=== PATIENT | female | born 1965 | race Caucasian/White ===

== ENCOUNTER 2024-07-11 01:26 | Emergency (ER) | payer BC, SELFPAY ==
[2024-07-11] VITALS (8 sets, daily range): BP systolic 117–150; BP diastolic 73–92
--- NOTE | 2024-07-11 02:25 | ED.GENMED ---
History of Present Illness
General
Chief Complaint: Breathing Problem
Source: patient
Exam Limitations: none
Time Seen by Provider: 07/11/24 02:19
Nursing documentation reviewed up to this point in time: agreed with
History of Present Illness
History of Present Illness:
59-year-old female brought in by EMS for evaluation of shortness of breath. Patient states that 'she has had parasites in her body since 2016 '. Patient states that she has been treated by her family doctor several times with antiparasitic's.
Patient states that she was recently told by her primary care provider that there is 'nothing more that he could do for her'. Patient has not sought the advice of a infectious disease doctor or other specialist. Patient is a smoker. She does not
have Sjogren's syndrome as well as possibility of lupus. Denies recent fever or chills. She did have some shortness of breath. Patient states that she is retired and lives with a roommate.
Past History
Past History
ED Past Medical History: Other (Endometriosis, interstitial cystitis.) and Other (Lupus, Sjogrens)
ED Past Surgical History: Gynecological (Laparoscopy) and Tonsilectomy
Social History
Tobacco: Former smoker
Alcohol: None
Drug: None
Personal:
Living: with family
Employment: Not employed
Review of Systems
Review of Systems
Allergies reviewed?: Yes
All Other Systems: ROS reviewed and negative except as documented in HPI and ROS
Constitutional: Reports no symptoms
EENT: Reports no symptoms
Respiratory: Reports cough and trouble breathing; Denies hemoptysis
Cardiac: Reports no symptoms
ABD/GI: Reports no symptoms
: Reports no symptoms
Musculoskeletal: Reports no symptoms
Skin: Reports no symptoms
Neurological: Reports no symptoms
Endocrine: Reports no symptoms
Hematologic/Lymphatic: Reports no symptoms
Psychiatric: Reports no symptoms
Phy Exam
General Physical Exam
General Presentation: well appearing and no apparent distress
General Skin: warm and dry
General Habitus: normal
General Mental: alert
General Hydration: appears well hydrated
ENT Exam
ENT Exam: EOMI, pharynx normal, neck supple and normocephalic
Eye Exam
Eye Exam: PERRL, cornea clear and conjunctiva normal
Cardiovascular Exam
Cardiovascular Exam: regular rate/rhythm, no edema, no murmur and normal peripheral pulses
Pulmonary Exam
Pulmonary Exam: lungs clear, no respiratory distress, no rales, no crackles, no rhonchi, no stridor, no wheezing and no cough
Gastrointestinal Exam
Gastrointestinal Exam: normal bowel sounds, non tender, soft, no organomegaly, no pulsatile mass and non distended
Neurological Exam
Neurological Exam: alert, oriented x3, no motor deficits and speech normal
Musculoskeletal Exam
Musculoskeletal Exam: full ROM and no edema
Skin Exam
Skin Exam: normal color, warm/dry, no rash and no petechia
Psychiatric Exam
Psychiatric Exam: normal mood/affect
Scores
Heart Failure Risk
Heart Failure Risk Score: Not Applicable
Course
Orders/Labs/Results
Orders:
Orders
07/11/24 02:37
CT Chest Pe Study Urgent
Comment:
Reason For Exam: dyspnea, hx of parasite
07/11/24 02:47
Complete Blood Count/With Diff Urgent
Comprehensive Metabolic Panel Urgent
Magnesium Urgent
NT-proBNP Urgent
PTT Urgent
Prothrombin Time Urgent
Troponin I Urgent
07/11/24 04:26
Dexamethasone Pf [Decadron] 10 mg PO NOW STA
Abnormal Lab Results
07/11/24
02:47
RBC 4.12 L 10^6/uL
(4.20-5.40)
Hct 35.7 L %
(37.0-47.0)
MCH 31.1 H pg
(27.0-31.0)
Absolute Monos (auto) 0.9 H 10^3/uL
(0.1-0.6)
Lymphocytes % 16.6 L %
(20.5-51.1)
Eosinophils % 7.0 H %
(0-6)
BUN 22 H mg/dl
(7-17)
Glucose 124 H mg/dl
(70-99)
AST 134 H U/L
(14-36)
ALT 59 H U/L
(0-35)
07/11/24 02:47
07/11/24 02:47
Vital Signs
Initial and Last Documented VS:
Initial Vital Signs
Pulse Resp BP Pulse Ox
99 18 150/89 98
07/11/24 01:30 07/11/24 01:30 07/11/24 01:30 07/11/24 01:30
Last Documented Vital Signs
Temp Pulse Resp BP Pulse Ox
97.6 F 82 14 117/73 96
07/11/24 01:31 07/11/24 06:03 07/11/24 06:03 07/11/24 06:02 07/11/24 05:00
*Critical Care Note
Total Time (30-74mins, 75-104mins- exclusive of procedures): Not Applicable
Update Note
Update Note:
Additional Information (per [facility]):
CTA chest with IV contrast
IMPRESSION:
No pulmonary embolus. Technically adequate study. No thoracic aneurysm or dissection.
Scattered bilateral tree-in-bud opacities and moderate bronchial wall thickening, which may be due to an infectious or inflammatory bronchiolitis.
Mediastinal and cardiac structures are unremarkable. Visualized portions of the upper abdomen are unremarkable.
ED Attending Note
-
Portions of this chart may have been created with voice recognition software.� Occasional wrong word or��sound alike� substitutions may have occurred due to the inherent limitations of voice recognition software.
Discharge Plan
Departure
Patient Disposition: Home (Routine Discharge)
Date of Disposition: 07/11/24
Time of Disposition: 04:27
Patient with high blood pressure during this ER visit?: Yes
Condition: Good
Discharge Problem:
Acute dyspnea
Instructions: Shortness of Breath (Dyspnea) (DC), BLOOD PRESSURE
Prescriptions:
No Action
ethynodiol diac-eth estradiol 1 TAB tablet
1 tab PO DAILY
amitriptyline 100 MG tablet
100 mg PO HS
pantoprazole 40 MG tablet,delayed release (DR/EC)
40 mg PO DAILY Qty: 30 0RF
Clonidine
0.2 mg topical .WEEKLY
Morphine:
30 mg PO HS
Referrals:
Maurice Jamison MD [Active] - Call in 1-3 days for appt
Ranjit Ruiz DO [Family Provider] -
Shawna Espino MD [Active] - As needed
Activity Restrictions/Additional Instructions:
It was a pleasure meeting you and taking part in your care. We hope for your continued healing and wellness.
Please read discharge instructions in their entirety. However, they are for general education and may not describe your exact diagnosis at discharge. Information on your ER visit and medical conditions were discussed with you along with appropriate
follow up information...
If indicated, please take your medications as instructed and indicated on discharge paperwork.
Please schedule a follow up appointment as directed. Call to schedule an appointment
Please return to the emergency department with ANY change in, persisting, or worsening of symptoms. If any of your symptoms do not improve, or persist, or become more severe within 6-12 hours, please return to the emergency department for further
care.
Please return to the emergency department if you develop a headache, neck pain/stiffness, fever greater than 100.4F, chest pain, shortness of breath, persistent nausea, vomiting, slurred speech, difficulty walking, numbness/tingling, weakness, signs
of infection or any other symptoms that are worrisome to you.
If you have any questions or concerns please do not hesitate to call the Hospital at
Interventions
Interventions:
*Risk Screen - Suicide Last Done: 07/11/24 01:31
*General Assessment Last Done: 07/11/24 01:31
*Neglect/Abuse Screening Last Done: 07/11/24 01:31
ED- Fall Risk Assessment Last Done: 07/11/24 01:31
*ED COVID-19 Vaccine History Last Done: 07/11/24 01:31
ED- Cardiac Assessment Last Done: 07/11/24 01:43
ED- Pulmonary Assessment Last Done: 07/11/24 01:43
Discharge Date and Time
Print Language: MICRONESIAN
[2024-07-11 02:57] LABS: % Basophils 0.4 % (0-2); % Immature Granulocytes 0.3 % (0-0.5); % Lymphocytes 16.6 % (20.5-51.1); % Neutrophils 66.7 % (42.2-75.2); Absolute Eosinophils 0.7 10^3/uL (0-0.7); Absolute Lymphocytes 1.6 10^3/uL (1.2-3.4); Absolute Monocytes 0.9 10^3/uL (0.1-0.6); Absolute Neutrophils 6.5 10^3/uL (1.4-6.5); Hematocrit 35.7 % (37.0-47.0); Hemoglobin 12.8 g/dL (12.0-16.0); Mean Corp Hgb Conc. 35.9 g/dL (33.0-37.0); Mean Corpuscular Hgb 31.1 pg (27.0-31.0); Mean Corpuscular Volume 86.7 fL (81.0-99.0); Mean Platelet Volume 9.2 fL (7.4-10.4); Nucleated Red Blood Cells % 0 %; Platelet Count 267 10^3/uL (130-400); Red Blood Cell Count 4.12 10^6/uL (4.20-5.40); White Blood Cell Count 9.8 10^3/uL (4.8-10.8)
[2024-07-11 03:09] LABS: APTT 31.3 Sec (23.4-35.0); PT 13.3 Sec (11.4-14.6)
[2024-07-11 03:21] LABS: ALT (SGPT) 59 U/L (0-35); AST (SGOT) 134 U/L (14-36); Albumin 4.7 g/dl (3.5-5.0); Alkaline Phosphatase 108 U/L (38-126); Blood Urea Nitrogen 22 mg/dl (7-17); Calcium 9.6 mg/dl (8.4-10.2); Carbon Dioxide 27 mmol/L (22-30); Chloride 102 mmol/L (98-107); Glucose 124 mg/dl (70-99); NT-proBNP 83.1 pg/ml; Potassium 4.2 mmol/L (3.5-5.1); Sodium 141 mmol/L (135-145); Total Bilirubin 0.3 mg/dl (0.2-1.3); Total Protein 7.1 g/dl (6.3-8.2); Troponin I < 0.012 ng/ml; eGFR > 60.00
[2024-07-11] MEDS: DECADRON 10 MG PO (04:49)
== END 2024-07-11 06:05 | disposition home or self-care (01) ==
LOC: EMR 01:26
PROVIDERS: EMERGENCY PHYSICIAN Student in an Organized Health Care Education/Training Program; FAMILY PHYSICIAN Family Medicine
DX: R05.9 Cough, unspecified (principal); R06.00 Dyspnea, unspecified; R03.0 Elevated blood-pressure reading, without diagnosis of hypertension; M35.00 Sjogren syndrome, unspecified; M32.9 Systemic lupus erythematosus, unspecified; E07.9 Disorder of thyroid, unspecified; F17.210 Nicotine dependence, cigarettes, uncomplicated; Z88.1 Allergy status to other antibiotic agents; Z88.2 Allergy status to sulfonamides
CPT/HCPCS: 99285; 71275; 80053; 83735; 83880; 84484; 85025; 85610; 85730; Q9967

== ENCOUNTER 2024-07-16 16:42 | Emergency (ER) | payer BC, SELFPAY ==
[2024-07-16 16:50] VITALS: BP 124/76
--- NOTE | 2024-07-16 17:26 | ED.GENMED ---
History of Present Illness
General
Chief Complaint: Breathing Problem
Source: patient
Exam Limitations: none
Time Seen by Provider: 07/16/24 17:28
Nursing documentation reviewed up to this point in time: agreed with
History of Present Illness
History of Present Illness:
Patient to ED with complaint of SOB. States she has been having episodes where she can not get any air in or out. States tonight she borrowed her friends inhaler and feels better. Brought self to ED for eval.
Past History
Past History
ED Past Medical History: Other (Endometriosis, interstitial cystitis.) and Other (Lupus, Sjogrens)
ED Past Surgical History: Gynecological (Laparoscopy) and Tonsilectomy
Social History
Tobacco: Former smoker
Alcohol: None
Drug: None
Personal:
Living: with family
Employment: Not employed
Review of Systems
Review of Systems
Allergies reviewed?: Yes
All Other Systems: ROS reviewed and negative except as documented in HPI and ROS
Constitutional: Reports no symptoms
EENT: Reports no symptoms
Respiratory: Reports cough and trouble breathing
Cardiac: Reports no symptoms
ABD/GI: Reports no symptoms
: Reports no symptoms
Musculoskeletal: Reports no symptoms
Skin: Reports no symptoms
Neurological: Reports no symptoms
Psychiatric: Reports no symptoms
Phy Exam
General Physical Exam
General Presentation: well appearing and no apparent distress
General age: appears stated age
General Skin: warm and dry
General Habitus: normal
General Mental: alert
General Hydration: appears well hydrated
Pulmonary Exam
Pulmonary Exam: lungs clear, no respiratory distress (Pulse ox 99% RA) and chest non tender
Musculoskeletal Exam
Musculoskeletal Exam: full ROM
Skin Exam
Skin Exam: normal color, warm/dry and no rash
Psychiatric Exam
Psychiatric Exam: normal mood/affect
Scores
Heart Failure Risk
Heart Failure Risk Score: Not Applicable
Course
Orders/Labs/Results
Orders:
Orders
07/16/24 16:43
EKG [Electrocardiogram (*1)] Urgent
Reason for Study: Shortness of Breath
EKG- Treatment ONCE
07/16/24 16:54
CR Chest - 2 Views Urgent
Comment:
Reason For Exam: SOB
07/16/24 17:05
Influenza A+B Rapid Molecular Urgent
ROLANDO Source: Nasal Swab
Specimen Description:
07/16/24 17:06
COVID-19 Antigen Urgent
Source: Nasal Swab
07/16/24 17:53
Complete Blood Count/With Diff Urgent
07/16/24 17:54
Comprehensive Metabolic Panel Urgent
NT-proBNP Urgent
Troponin I Urgent
07/16/24 18:50
Ipratropium/Albuterol Sulfate [Duoneb] 3 ml .ROUTE .STK-MED ONE
Abnormal Lab Results
07/16/24 07/16/24
17:53 17:54
RBC 3.86 L 10^6/uL
(4.20-5.40)
Hgb 11.7 L g/dL
(12.0-16.0)
Hct 33.3 L %
(37.0-47.0)
Eosinophils % 10.9 H %
(0-6)
Creatinine 0.5 L mg/dL
(0.6-1.0)
Glucose 117 H mg/dl
(70-99)
07/16/24 17:53
07/16/24 17:54
Vital Signs
Initial and Last Documented VS:
Initial Vital Signs
Temp Pulse Resp BP Pulse Ox
97.9 F 78 18 124/76 98
07/16/24 16:50 07/16/24 16:50 07/16/24 16:50 07/16/24 16:50 07/16/24 16:50
Last Documented Vital Signs
Temp Pulse Resp BP Pulse Ox
97.9 F 80 18 125/73 99
07/16/24 16:50 07/16/24 18:45 07/16/24 17:44 07/16/24 18:00 07/16/24 18:57
*Radiology
Radiology exam reviewed: radiology read reviewed
*Pulse Oximetry
Patient hypoxic: no
*Critical Care Note
Total Time (30-74mins, 75-104mins- exclusive of procedures): Not Applicable
ED Attending Note
-
Portions of this chart may have been created with voice recognition software.� Occasional wrong word or��sound alike� substitutions may have occurred due to the inherent limitations of voice recognition software.
Discharge Plan
Departure
Patient Disposition: Home (Routine Discharge)
Date of Disposition: 07/16/24
Time of Disposition: 18:23
Patient with high blood pressure during this ER visit?: No
Condition: Good
Covid-19: Not Applicable
Discharge Problem:
Acute bronchospasm
Instructions: Shortness of Breath (Dyspnea) (DC)
Prescriptions:
New
prednisone 10 mg Tablet
See Rx Instructions .ROUTE .COMPLEX Qty: 30 0RF
Rx Instructions:
Take By Mouth:
40 mg daily x3 days, 30 mg daily x3 days,
20 mg daily x3 days, 10 mg daily x3 days.
albuterol sulfate 2.5 mg /3 mL (0.083 %) solution for nebulization
2.5 mg inhalation Q6H PRN (Reason: bronchospasm) Qty: 90 0RF
triamcinolone acetonide [Nasacort] 55 mcg aerosol,spray
2 spray intranasal DAILY Qty: 16.9 0RF
albuterol sulfate [Proventil HFA] 90 mcg/actuation HFA aerosol inhaler
2 puff inhalation QID PRN (Reason: shortness of breath or wheezing) Qty: 8.5 0RF
Rx Instructions:
to be used in place of nebulizer
No Action
ethynodiol diac-eth estradiol 1 TAB tablet
1 tab PO DAILY
amitriptyline 100 MG tablet
100 mg PO HS
pantoprazole 40 MG tablet,delayed release (DR/EC)
40 mg PO DAILY Qty: 30 0RF
Clonidine
0.2 mg topical .WEEKLY
Morphine:
30 mg PO HS
Referrals:
Ranjit Ruiz, DO [Family Provider] - Tomorrow
Interventions
Interventions:
*Risk Screen - Suicide Last Done: 07/16/24 16:50
*General Assessment Last Done: 07/16/24 16:50
*Neglect/Abuse Screening Last Done: 07/16/24 16:50
*Nursing Disposition Last Done: 07/16/24 18:57
ED- Cardiac Assessment Last Done: 07/16/24 18:02
ED- Pulmonary Assessment Last Done: 07/16/24 18:02
Discharge Date and Time
Discharge Date/Time: 07/16/24 19:01
Print Language: [place] ISLAND[place]
[2024-07-16 17:40] VITALS: BP 142/81
[2024-07-16 17:41] VITALS: BMI 16.2
[2024-07-16 17:44] VITALS: BP 142/81
[2024-07-16 17:47] LABS: COVID-19 Antigen Negative (Negative)
[2024-07-16 18:00] VITALS: BP 125/73
[2024-07-16 18:01] LABS: % Basophils 0.4 % (0-2); % Eosinophils 10.9 % (0-6); % Immature Granulocytes 0.1 % (0-0.5); % Lymphocytes 27.9 % (20.5-51.1); % Monocytes 8.4 % (1.7-9.3); % Neutrophils 52.3 % (42.2-75.2); Absolute Eosinophils 0.7 10^3/uL (0-0.7); Absolute Lymphocytes 1.9 10^3/uL (1.2-3.4); Absolute Monocytes 0.6 10^3/uL (0.1-0.6); Absolute Neutrophils 3.6 10^3/uL (1.4-6.5); Hematocrit 33.3 % (37.0-47.0); Hemoglobin 11.7 g/dL (12.0-16.0); Mean Corp Hgb Conc. 35.1 g/dL (33.0-37.0); Mean Corpuscular Hgb 30.3 pg (27.0-31.0); Mean Corpuscular Volume 86.3 fL (81.0-99.0); Mean Platelet Volume 9.5 fL (7.4-10.4); Nucleated Red Blood Cells % 0 %; Platelet Count 246 10^3/uL (130-400); Red Blood Cell Count 3.86 10^6/uL (4.20-5.40); Red Cell Dist. Width 12.6 % (11.5-14.5); White Blood Cell Count 6.8 10^3/uL (4.8-10.8)
[2024-07-16 18:15] LABS: ALT (SGPT) 24 U/L (0-35); AST (SGOT) 33 U/L (14-36); Albumin 4.6 g/dl (3.5-5.0); Alkaline Phosphatase 109 U/L (38-126); Blood Urea Nitrogen 16 mg/dl (7-17); Calcium 9.7 mg/dl (8.4-10.2); Carbon Dioxide 28 mmol/L (22-30); Chloride 100 mmol/L (98-107); Estimated Creatinine Clearance 73 ml/min; Glucose 117 mg/dl (70-99); Potassium 4.2 mmol/L (3.5-5.1); Sodium 138 mmol/L (135-145); Total Bilirubin 0.6 mg/dl (0.2-1.3); eGFR > 60.00
[2024-07-16 18:32] LABS: NT-proBNP 205 pg/ml; Troponin I < 0.012 ng/ml
== END 2024-07-16 19:01 | disposition home or self-care (01) ==
LOC: EMR 16:42
PROVIDERS: EMERGENCY PHYSICIAN Emergency Medicine; FAMILY PHYSICIAN Family Medicine
DX: J98.01 Acute bronchospasm (principal); Z11.52 Encounter for screening for COVID-19; M35.00 Sjogren syndrome, unspecified; M32.9 Systemic lupus erythematosus, unspecified; E07.9 Disorder of thyroid, unspecified; N80.9 Endometriosis, unspecified; Z87.891 Personal history of nicotine dependence; Z88.1 Allergy status to other antibiotic agents; Z88.2 Allergy status to sulfonamides
CPT/HCPCS: 99283; 71046; 80053; 83880; 84484; 85025; 87502; 87811; 93005